=== PATIENT | male | born 1990 | race African-American/Black ===

== ENCOUNTER 2021-08-09 18:47 | Emergency (ER) | payer BC, SELFPAY ==
[2021-08-09 18:48] VITALS: BP 150/95; PULSE 83; RESP 15; TEMP 36.2; O2SAT 97; BMI 35.2
--- NOTE | 2021-08-09 18:50 | EKG12_ITS ---
Test Reason : CP Blood Pressure : / mmHG Vent. Rate : 076 BPM Atrial Rate : 076 BPM P-R Int : 150 ms QRS Dur : 084 ms QT Int : 358 ms P-R-T Axes : -17 -03 -14 degrees QTc Int : 402 ms Normal sinus rhythm Low voltage QRS (Limb Leads) Borderline ECG Confirmed by WINNIE DICKERSON, ANNA ([id number]), production editor JAMISON ENCINAS ([id number]) on 08/11/2021 12:24:05 PM Referred By: ACACIA Confirmed By:ANNA ZHOU MD
--- NOTE | 2021-08-09 19:08 | RAD_ITS ---
EXAM: XR CHEST, 1 VIEW CLINICAL INDICATION: CP TECHNIQUE: Frontal view of the chest. This report was created using [employer] report generation technology. COMPARISON: None. FINDINGS: LUNGS AND PLEURAL SPACES: Unremarkable. No consolidation or edema. No pneumothorax. No effusion. HEART: Unremarkable. Cardiac silhouette not enlarged. MEDIASTINUM: Central airways and mediastinal contour are unremarkable. BONES/JOINTS: Unremarkable. SOFT TISSUES: Unremarkable. RAD/Chest 1 View IMPRESSION: No radiographic evidence of acute cardiopulmonary disease. Electronically Signed: Tito Montero MD at 19:33 EST , Service support ,
[2021-08-09 20:52] VITALS: BP 169/78; PULSE 79; RESP 16; O2SAT 98
[2021-08-09 22:01] VITALS: BP 138/90; PULSE 79; RESP 16; O2SAT 99
[2021-08-09 22:06] LABS: Absolute Lymphocyte Count 1.64 X10^3/uL (0.83-4.51); Absolute Neutrophil Count 3.4 X10^3/uL (2.0-7.7); Basophil# 0.03 X10^3/uL; Basophil% 0.5 % (0-1); Eosinophil# 0.06 X10^3/uL; Hematocrit 41.6 % (40-54); Hemoglobin 13.6 g/dL (13.0-16.5); Lymphocyte # 1.64 X10^3/ul (0.83-4.51); Lymphocyte % 27.7 % (19-41); Mean Corp Hgb Conc 32.7 g/dL (32-36); Mean Corpuscular Hgb 25.5 pg (27.0-32.0); Mean Corpuscular Volume 77.9 fL (80-94); Mean Platelet Vol. 11.4 fl (6.2-12.0); Monocyte# 0.72 X10^3/uL; Monocyte% 12.2 % (0-10); NRBC Flagged by Analyzer 0 % (0-5); Neutrophil # 3.44 X10^3/uL (2.7-7.7); Neutrophil % 58.3 % (47-70); Platelet Count 227 K/mm3 (150-450); RBC Distribution Width CV 14.7 % (11.6-14.6); RBC Distribution Width SD 41.2 fl (35.1-43.9); Red Blood Count 5.34 M/mm3 (4.6-6.2); White Blood Count 5.9 K/mm3 (4.4-11.0)
[2021-08-09 22:26] LABS: Anion Gap 3 (5-15); BUN 11 mg/dL (7-18); Calcium,Total 9.4 mg/dL (8.5-10.1); Chloride 107 mmol/L (98-107); Creatinine, Serum 1.22 mg/dL (0.70-1.30); EST Glomerular Filtration Rate 75 mL/min (>60); Est Glom Filt Rate - Afr Amer 91 mL/min (>60); Estimated Creatinine Clearance 98.94 ml/min; Glucose 92 mg/dL (74-106); Potassium 3.8 mmol/L (3.5-5.1); Sodium Level 140 mmol/L (136-145); Troponin-I HS 4 pg/mL (3.0-78.0)
--- NOTE | 2021-08-09 22:57 | EDS_ITS ---
HPI History of Present Illness Chief Complaint: Chest Pain Informant: patient Onset/Context/Timing Onset: Month(s) Activity at onset: gradual Timing: Intermittent Quality: Positive for Aching Location: Substernal Worsened By: Nothing Relieved By: NSAIDS Associated Symptoms: Positive for Acid Reflux and Palpitations; Negative for Nausea, Vomiting, Diaphoresis, Dyspnea, Cough, Fever and Lightheadedness Narrative Narrative: Patient presents with chest pain that has been intermittent for the past couple months. Patient states it is substernal. Patient states it began yesterday while he was at work. Patient states he felt like his heart was racing at that time. Patient states nothing makes it worse. Patient states he took some anti-inflammatory medicine which helped. Patient describes his pain as aching. Patient denies any nausea or vomiting. Patient denies any shortness of breath or cough. Patient denies any fevers or chills. CVD Risk Factors: Negative for Hypertension, Diabetes, Hypercholesterolemia, Family History 1' </=55 and Smoking PE Risk Factors: Negative for Recent Travel/Surgery, Recent Immobilization, Prior DVT or PE, Cancer and OCP + Smoking + >/=35 PFSH PFSH Medical History no medical history no medical history Home Medications NK 08/09/21 [History Last Taken Unknown] Allergy/AdvReac Type Severity Reaction Status Date / Time No Known Allergies Allergy Verified 08/09/21 18:48 Family History no significant family his no significant family history Surgical History no surgical history no surgical history Social History Smoking Status: Never smoker ROS ROS ED Constitutional Constitutional ED: Denies chills or fever(s) Eyes Eyes: Denies blurry vision or change in vision ENT ENT ED: Denies rhinorrhea or sore throat Cardiovascular Cardiovascular: Reports chest pain and palpitations Respiratory/Chest Respiratory/Chest: Denies cough or dyspnea Gastrointestinal Gastrointestinal: Reports nausea; Denies abdominal pain or vomiting Genitourinary Genitourinary ED: Denies dysuria or hematuria Musculoskeletal Musculoskeletal: Reports back pain; Denies neck pain Integumentary Denies abscess or rash Neurologic Neurologic: Denies headache(s) or weakness Allergic/Immunologic Allergic/Immunologic ED: Denies mouth swelling or urticaria EXAM Physical Exam Const Vital Signs: 08/09/21 18:48 08/09/21 20:39 08/09/21 20:52 Temperature 97.1 F L Temperature Source Temporal Pulse Rate 83 79 Respiratory Rate 15 16 Respiratory Effort Normal Non-Labored Blood Pressure 150/95 H 169/78 H Blood Pressure Mean 113 108 Pulse Ox 97 98 Oxygen Delivery Method Room Air Room Air 08/09/21 22:01 Temperature Temperature Source Pulse Rate 79 Respiratory Rate 16 Respiratory Effort Blood Pressure 138/90 H Blood Pressure Mean 106 Pulse Ox 99 Oxygen Delivery Method Room Air Positive well nourished and well developed General Appearance ED: well developed HEENT normocephalic and atraumatic Eyes PERRL and EOMs intact bilaterally Neck supple and no JVD Chest Wall palpation of chest normal Resp normal respiratory effort and clear to auscultation bilaterally Effort and Inspection: Negative for respiratory distress Cardio regular rate, regular rhythm and no murmurs GI normal to inspection, nondistended, normoactive bowel sounds, soft to palpation, non-tender and non-distended Extremity normal to inspection General Extremety ED: Negative for edema or tenderness General Extremity: Negative for edema Neuro oriented x3, CN's II-XII intact bilaterally and no sensory deficits noted Sensorium / Orientation: awake and alert Motor Exam: strength 5/5 throughout Psych mental status grossly normal Heart Score History: Slightly/Non-Suspicious ECG: Normal Age: </= 45 years Risk Factors: No Risk Factors Troponin: </= Normal Limit Score: 0 MDM MDM MDM Narrative Medical decision making narrative: EKG was obtained. On my interpretation, it showed a normal sinus rhythm with a rate of 76. AR interval, QRS interval, and QTc intervals were all normal. [place] was normal. There are no acute ST or T wave changes. Portable 1 view chest x-ray was obtained. On my interpretation, lung schulte are clear. There is normal cardiac silhouette. Bony thorax is normal. There is no acute process noted. Radiologist also interpreted the x- ray and agrees. CBC and basic metabolic profile were within normal limits. High-sensitivity troponin was normal. Patient was advised of his findings. Patient was instructed to follow-up with his primary care physician in 5 to 7 days. Patient understood and was agreeable with the plan. All questions were answered. Lab Data Attestation: I reviewed the patient's lab results. Labs: Laboratory Results - last 24 hr 08/09/21 08/09/21 22:00 22:00 WBC 5.9 RBC 5.34 Hgb 13.6 Hct 41.6 MCV 77.9 L MCH 25.5 L MCHC 32.7 RDW Std Deviation 41.2 RDW Coeff of [place] 14.7 H Plt Count 227 MPV 11.4 Immature Gran % (Auto) 0.300 Neut % (Auto) 58.3 Lymph % (Auto) 27.7 [place] % (Auto) 12.2 H Eos % (Auto) 1.0 Baso % (Auto) 0.5 Absolute Neuts (auto) 3.4 Absolute Lymphs (auto) 1.64 Nucleated RBC % 0 Sodium 140 Potassium 3.8 Chloride 107 Carbon Dioxide 30.0 Anion Gap 3 L BUN 11 Creatinine 1.22 Estim Creat Clear Calc 98.94 Est GFR (MDRD) Af Amer 91 Est GFR (MDRD) Non-Af 75 BUN/Creatinine Ratio 9.0 L Glucose 92 Calcium 9.4 Troponin I High Sens 4 Radiography Chest X-Ray - ED: 1 View, Read by ED Physician, Read by Radiologist and Normal Diagnostic Testing: Clinical Impression(s) from Imaging Studies Chest X-Ray 08/09/21 19:08 IMPRESSION: No radiographic evidence of acute cardiopulmonary disease. Electronically Signed: Tito Montero MD at 19:33 EST , Service support , EKG Initial EKG: Attestation: I personally reviewed and interpreted this EKG as follows: Interpretation: Sinus Rhythm (76) and No Acute Injury Pattern Discharge Plan Triage Chief Complaint: Chest Pain ED Provider: Carlos Contreras Dx/Rx/DC Orders Clinical Impression: Chest pain of unknown etiology Instructions: ED Chest Pain, Uncertain Cause Prescriptions: No Action NK RF: 0 Stand Alone Forms: ED Work / School Excuse Primary Care Provider: Care Physician,No Primary Referrals: Horacio Ramos MD [STAFF PHYSICIAN] - 5-7 Days Care Physician,No Primary [Primary Care Provider] - Disposition Disposition: Home, Self Care
[2021-08-09 23:33] VITALS: BP 122/71; PULSE 69; RESP 16; O2SAT 98
== END 2021-08-09 23:33 | disposition home or self-care (01) ==
PROVIDERS: Emergency Provider Emergency Medicine
DX: R07.9 Chest pain, unspecified (principal)
CPT/HCPCS: 71045; 80048; 84484; 85025; 93005; 99283

== ENCOUNTER 2024-03-30 08:31 | Emergency (ER) | payer OTHER, SELFPAY ==
[2024-03-30 08:32] VITALS: BP 154/83; PULSE 94; RESP 18; TEMP 37; O2SAT 93; BMI 35.2
--- NOTE | 2024-03-30 08:44 | EX.ED.VIS.UR ---
HPI HPI - URI History of Present Illness Chief Complaint: Cold Sx Narrative Narrative: 33-year-old male with cough, congestion, sore throat, body aches. Denies fever but has not checked his temperature. Onset was a couple of days ago. No known sick contacts. No nausea or vomiting. No diarrhea. No chest pain or abdominal pain. ROS ROS ED Constitutional Constitutional ED: Reports chills and subjective; Denies sweats Eyes Eyes: Denies blurry vision or change in vision ENT ENT ED: Denies ear pain or sore throat Cardiovascular Cardiovascular: Denies chest pain, palpitations or racing heartbeat Respiratory/Chest Respiratory/Chest: Reports cough; Denies dyspnea or sputum Gastrointestinal Gastrointestinal: Denies abdominal pain, constipation, diarrhea, nausea or vomiting Genitourinary Genitourinary ED: Denies dysuria, hematuria or urinary frequency Musculoskeletal Musculoskeletal: Reports myalgias; Denies arthralgias or neck pain Integumentary Denies abscess, Abrasions or rash Neurologic Neurologic: Denies headache(s), paresthesias or weakness Psychiatric Psychiatric: Denies anxiety, depression, suicidal ideation or suicidal thoughts Endocrine Endocrinology: Denies polydipsia or polyuria PFSH PFSH Medical History no medical history Home Medications ?Medication ?Instructions ?Recorded ?Last Taken ?Type NK 08/09/21 Unknown History Allergy/AdvReac Type Severity Reaction Status Date / Time No Known Allergies Allergy Verified 08/09/21 18:48 Social History Smoking Status: Never smoker EXAM Physical Exam Const Vital Signs: 03/30/24 08:32 03/30/24 09:02 Temperature 98.6 F Temperature Source Oral Pulse Rate 94 Respiratory Rate 18 Respiratory Effort Normal Non-Labored Respiratory Pattern Normal Blood Pressure 154/83 H Blood Pressure Mean 106 Pulse Ox 93 Oxygen Delivery Method Room Air Positive well nourished General Appearance ED: NAD; Negative for pallor HEENT Reports moist mucous membranes and dry mucous membranes normocephalic and atraumatic Mouth ED: Yes dry mucous membranes Mouth: dry mucous membranes Throat: posterior oropharynx normal Eyes PERRL and EOMs intact bilaterally Neck no lymphadenopathy and supple Resp normal respiratory effort and clear to auscultation bilaterally Auscultation: Negative for rales, rhonchi or wheezes Cardio Rate: regular rate Rhythm: regular rhythm Neuro oriented x3 and CN's II-XII intact bilaterally Sensorium / Orientation: alert Motor Exam: strength 5/5 throughout Psych mental status grossly normal Skin General Skin Exam: Negative for jaundice or pallor MDM MDM MDM Narrative Medical decision making narrative: Patient presenting with viral symptoms. EGD exam is normal. Heart regular rate and rhythm without murmur. Lungs clear to auscultation bilaterally. He will be tested for COVID, influenza, RSV. He is given ibuprofen 600 mg. COVID, influenza, RSV negative. Patient counseled he likely has something viral. Patient counseled Tylenol and ibuprofen as well as plenty of fluids. Return precautions discussed. Impression: 1. Viral syndrome Discharge Plan Triage Chief Complaint: Cold Sx ED Provider: Darrell Nunez Dx/Rx/DC Orders Instructions: ED Viral Syndrome (Adult) Prescriptions: No Action NK Primary Care Provider: Care Physician,No Primary Referrals: Care Physician,No Primary [Primary Care Provider] - Print Language: Ecuadorean Disposition Disposition: Home, Self Care
[2024-03-30] MEDS: Ibuprofen 600 MG Tablet PO (08:53)
== END 2024-03-30 10:34 | disposition home or self-care (01) ==
PROVIDERS: Emergency Provider Student in an Organized Health Care Education/Training Program; Visit Provider Student in an Organized Health Care Education/Training Program
DX: B34.9 Viral infection, unspecified (principal); R05.9 Cough, unspecified; J02.9 Acute pharyngitis, unspecified
CPT/HCPCS: 87631; 99282

== ENCOUNTER → 2025-04-17 | Outpatient (CLI) | payer BC, SELFPAY ==
[2025-04-17 15:27] LABS: Hematocrit 44.7 % (40-54); Hemoglobin 14.4 g/dL (13.0-16.5); Mean Corp Hgb Conc 32.2 g/dL (32-36); Mean Corpuscular Volume 78.3 fL (80-94); Mean Platelet Vol. 12.3 fl (6.2-12.0); Platelet Count 222 K/mm3 (150-450); RBC Distribution Width CV 14.8 % (11.6-14.6); RBC Distribution Width SD 41.8 fl (35.1-43.9); Red Blood Count 5.71 M/mm3 (4.6-6.2); White Blood Count 5.9 K/mm3 (4.4-11.0)
[2025-04-17 16:12] LABS: AST(SGOT) 23 U/L (<=37); Alanine Aminotransfer ALT/SGPT 20 U/L (<=46); Albumin, Serum 4.5 g/dL (3.5-5.0); Alkaline Phosphatase 60 U/L (40-129); Anion Gap 12 (5-15); BUN 10 mg/dL (4-19); BUN/Creat Ratio 8.2 RATIO (10-20); Calcium,Total 9.7 mg/dL (7.6-11.0); Carbon Dioxide 24.1 mmol/L (21.0-32.0); Chloride 103 mmol/L (98-108); Cholesterol 225 mg/dL (<=200); Globulin 3.3 g/dL (2.2-4.2); Glucose 109 mg/dL (70-99); Low Density Lipoprotein Calc. 162 mg/dL; Potassium 4.4 mmol/L (3.3-5.1); Triglycerides 81 mg/dL; Very Low Density Lipoprotein 16 mg/dL (5-40); cholesterol:hdl ratio screen 4.82
[2025-04-17 16:13] LABS: Vitamin D,25 Hydroxy 14.4 ng/mL (30-100)
== END | disposition home or self-care (01) ==
LOC: MFPLAB 12:18
PROVIDERS: Visit Provider Family Medicine
DX: Z00.00 Encounter for general adult medical examination without abnormal findings (principal); Z13.220 Encounter for screening for lipoid disorders; R53.83 Other fatigue; Z13.1 Encounter for screening for diabetes mellitus
CPT/HCPCS: 36415; 80053; 80061; 82306; 83036; 84443; 85027

== ENCOUNTER → 2025-07-23 | Outpatient (CLI) | payer BC, SELFPAY ==
--- NOTE | 2025-07-23 17:32 | CT_ITS ---
PROCEDURE: ABDOMEN WITHOUT IV CONTRAST 07/23/2025 REASON FOR EXAM: ABDOMINAL PAIN Two-month history of intermittent groin pain. TECHNIQUE: Procedure Code: CTABD Modality: CT Procedure: ABDOMEN WITHOUT IV CONTRAST coronal and Sagittal reconstruction series were provided. One or more dose reduction techniques were used (e.g., Automated exposure control, adjustment of the mA and/or kV according to patient size, use of iterative reconstruction technique CONTRAST: None RADIATION DOSE SUMMARY: CTDlvol: 20.76 mGy DLP: 1260.27 mGycm COMPARISON: None FINDINGS: Noncontrast technique limits evaluation of the abdominal viscera. Lung bases: The lung bases are clear. Liver: Normal size. No mass. Gallbladder: The gallbladder is unremarkable. Spleen: Normal size. Pancreas: Normal size without evidence of mass surrounding inflammation or ductal dilation. Adrenals: Unremarkable Kidneys: Normal renal sizes. No hydronephrosis. Bowel: Unremarkable Lymph nodes: Unremarkable. Vasculature: The abdominal aorta and IVC are normal. Peritoneum / Retroperitoneum: Small right inguinal hernia containing fat. Bones: Unremarkable. Straightening of the normal lumbar lordosis. CT/Abdomen without IV Contrast IMPRESSION: Small right inguinal hernia containing fat. Reading Location: [id number]
== END | disposition home or self-care (01) ==
LOC: CT 17:31
PROVIDERS: PCP Family Medicine; Referring Provider Family Medicine; Visit Provider Family Medicine
DX: R10.10 Upper abdominal pain, unspecified (principal)
CPT/HCPCS: 74150